=== PATIENT | female | born 1935 | race African-American/Black ===

== ENCOUNTER → 2016-06-11 | Outpatient (CLI) | payer OTHER ==
[~2016-06-11] MED LIST: ASPIRIN EC81 M1 PO; FOLIC ACID1 MG PO; GABAPENTIN300 M2 PO; HYDROCHLOROTHIA25 MG PO; JANUMET 50-1,1 UDTAB PO; LIPITOR20 MG PO; METOPROLOL SUCC50 MG PO; MICRO-K10 MEQ PO; NEXIUM PO; OMEPRAZOLE40 MG PO; SERTRALINE HCL50 M1 PO
--- NOTE | ~2016-06-11 | CR63 ---
[facility] A Service of [place] [facility] RADIOLOGY TEXT RESULTS PATIENT: PAULINA BENSON LOCATION: [facility] : 39 UNIT #: [id number] AGE: [address]: Uzma Wright MD SEX: F ORDER DR: [id number] [facility] [address] [place], [place] [address] [id number] O MR#: [id number] Acc #: [id number] NAME: PAULINA BENSON : 1935 SEX: F STUDY DATE/TIME: 06/11/2016 10:50 UNIT: [facility] ROOM: STUDY DESCRIPTION: CR Chest 2 View Attending Physician: Uzma Wright M.D. Referring Physician: Uzma Wright M.D. Ordering Physician: Uzma Wright M.D. Primary Care Physician: Uzma Wright M.D. MEDICAL IMAGING REPORT This report is preliminary unless electronic signature is present EXAM 2-view chest 06/11/2016 HISTORY 81-year-old female with shortness of air and cough for 1 week. Essential hypertension. COMPARISON Chest 08/28/2015 FINDINGS 2 views of the chest demonstrate clear lungs. No pleural effusion or pneumothorax. Heart size and mediastinum are normal. Pulmonary vasculature normal. IMPRESSION No acute cardiopulmonary findings. Dictated by... Himanshu Hood M.D. THIS IS AN ELECTRONICALLY VERIFIED REPORT Himanshu Hood M.D. at 06/12/2016 5:00 PM Dimitri TD: 06/11/2016 15:52 JOB #: [id number] MEDICAL IMAGING REPORT Page 1 of 1 COPY
== END | disposition home or self-care (01) ==
LOC: CRAD 10:09
DX: J20.9 Acute bronchitis, unspecified (principal); I10 Essential (primary) hypertension
CPT/HCPCS: 71020

== ENCOUNTER → 2016-06-21 | Outpatient (CLI) | payer OTHER | END | disposition home or self-care (01) | LOC: CSSDAY 07:20 | DX: D50.9 Iron deficiency anemia, unspecified (principal); Z79.899 Other long term (current) drug therapy | CPT/HCPCS: 96374; Q0138 ==